=== PATIENT | male | born 1940 | race Caucasian/White ===

== ENCOUNTER → 2022-02-26 | Outpatient (CLI) | payer MEDICARE, OTHER ==
--- NOTE | 2022-02-26 14:14 | Diagnostic Imaging Report ---
INDICATION: Left knee pain. COMPARISON: None. FINDINGS: Multiple radiographic views of the left knee were obtained. There is no evidence of acute fracture or dislocation. Osseous structures are intact. There are moderate degenerative changes, greatest involving the medial tibial femoral compartment and patellar trochlear compartment. This consists of joint space narrowing with osteophyte formations. There is also sclerotic remodeling of the medial femoral condyle and tibial plateau. No unexpected radiopaque foreign bodies are seen. There does appear to be suprapatellar joint effusion. IMPRESSION: 1. Suprapatellar joint effusion, but no evidence of acute fracture or dislocation. 2. Background moderate osteoarthritic changes. Dictated by: Dictated on workstation # [id number]
== END ==
LOC: ORTHO 13:43
PROVIDERS: ATTEND Orthopaedic Surgery
DX: M17.12 Unilateral primary osteoarthritis, left knee (principal)
CPT/HCPCS: 20610; 73564; 89060; G0463